=== PATIENT | female | born 1985 | race Two or more races ===

== ENCOUNTER 2016-11-09 11:00 | Emergency (ER) | payer MEDICAID ==
[~2016-11-09] VITALS: Ht 160 cm; Wt 88.9 kg
--- NOTE | 2016-11-09 11:05 | NUR ---
PATIENT PRESENTS TO ER C/O L SIDED NECK PAIN, RADIATING DOWN L ARM X 1 MONTH, WORSENING LAST NIGHT. PATIENT IS A/OX 4. BREATHING EVEN AND UNLABORED. NO SOB. VITALS STABLE. SAFETY AND COMFORT MEASURES IN PLACE. AWAITING MD ORDERS.
--- NOTE | 2016-11-09 11:55 | NUR ---
US TECH AT BEDSIDE FOR DUPLEX
--- NOTE | 2016-11-09 12:31 | NUR ---
Patient discharged to home in stable condition. Written and verbal after care instructions given. Patient verbalizes understanding of instruction.
[2016-11-09 12:32] VITALS: BP 118/76
== END 2016-11-09 12:32 | disposition home or self-care (01) ==
LOC: ER 11:04
DX: O26.893 Other specified pregnancy related conditions, third trimester (principal); M54.2 Cervicalgia; J45.909 Unspecified asthma, uncomplicated; F41.9 Anxiety disorder, unspecified; Z3A.32 32 weeks gestation of pregnancy
CPT/HCPCS: 93970-TC; A4606; Z7610

== ENCOUNTER 2017-06-02 20:21 | Emergency (ER) | payer OTHER ==
[~2017-06-02] VITALS: Ht 160 cm; Wt 83.9 kg
[2017-06-02 20:23] VITALS: BP 128/83
== END 2017-06-02 21:34 | disposition home or self-care (01) ==
LOC: ER 20:21
DX: R21 Rash and other nonspecific skin eruption (principal); J45.909 Unspecified asthma, uncomplicated; F41.9 Anxiety disorder, unspecified; D64.9 Anemia, unspecified
CPT/HCPCS: 99283; A4606; Z7610

== ENCOUNTER 2018-05-03 11:34 | Inpatient (IN) | payer OTHER ==
[~2018-05-03] VITALS: Ht 160 cm; Wt 94.3 kg
--- NOTE | 2018-05-03 11:34 | NUR ---
PT BIB FOR CHEST PAIN; PT AAOX4, PT ON MONITOR, NAD NOTED, MD AT BEDSIDE FOR EVAL
[2018-05-03] MEDS ORDERED: ACETAMINOPHEN ES 500 MG TABLET ONE (11:58)
[2018-05-03] MEDS ORDERED: ACETAMINOPHEN 650 MG/20.3 ML UDC ONE (12:00)
[2018-05-03] MEDS ORDERED: ACETAMINOPHEN ES 500 MG TABLET PO ONE (12:00)
[2018-05-03] MEDS ORDERED: IV NS 0.9% 1,000 ML BAG IV ONE (12:00)
[2018-05-03 12:05] LABS: RED BLOOD CELL COUNT(AUTO) 4.46 MIL/uL (4.0-5.2); WHITE BLOOD COUNT (AUTO) 11.1 K/uL (4.3-11.0)
[2018-05-03 12:06] LABS: BASOPHILS % (AUTO) 0.3 % (0.0-2.0); HEMATOCRIT 36 % (33-45); HEMOGLOBIN 11.6 g/dL (11.5-14.8); LYMPHOCYTES # (AUTO) 1.1 /CMM (0.8-4.8); LYMPHOCYTES % (AUTO) 10.1 % (20.0-44.0); MEAN CORPUSCULAR HGB CONC 32 g/dl (31.0-36.0); MEAN CORPUSCULAR VOLUME 80 fL (82-100); MONOCYTES % (AUTO) 9.1 % (2.0-12.0); NEUTROPHILS % (AUTO) 80.5 % (43.0-81.0); PLATELET COUNT (AUTO) 209 /CMM (150-450)
[2018-05-03 12:15] LABS: CALCIUM, SERUM 8.9 mg/dL (8.5-10.1); CARBON DIOXIDE 25 mmol/L (21-32); CHLORIDE 101 mmol/L (98-107); CREATININE 0.8 mg/dL (0.6-1.3); GLUCOSE 104 mg/dL (74-106); POTASSIUM 3.3 mmol/L (3.5-5.1); SODIUM SERUM 137 mmol/L (136-145); UREA NITROGEN, BLOOD 8 mg/dL (7-18)
[2018-05-03 12:20] LABS: ALANINE AMINOTRANSFERASE 18 U/L (12-78); ALBUMIN 3.4 g/dL (3.4-5.0); ALKALINE PHOSPHATASE 69 U/L (46-116); ASPARTATE AMINOTRANSFERASE 11 U/L (15-37); BILIRUBIN,DIRECT 0.2 mg/dL (0.0-0.2); BILIRUBIN,TOTAL 0.7 mg/dL (0.2-1.0); TOTAL PROTEIN, SERUM 7.9 g/dL (6.4-8.2)
[2018-05-03] MEDS ORDERED: AZITHROMYCIN 500 MG in IV D5W 250 ML IV ONE (13:00)
[2018-05-03] MEDS ORDERED: CEFTRIAXONE 1GM BAG (ER ONLY) 50 ML IV ONE ×2 (13:00→13:08)
[2018-05-03 13:28] LABS: BILIRUBIN,URINE 1+ (NEGATIVE); BLOOD, URINE 1+ Ery/uL (NEGATIVE); COLOR,URINE YELLOW (YELLOW); KETONES,URINE 2+ (NEGATIVE); LEUKOCYTE ESTERASE ,URINE NEGATIVE (NEGATIVE); NITRITE, URINE NEGATIVE (NEGATIVE); PROTEIN,URINE 1+ mg/dl (NEGATIVE); UGLUCOSE NEGATIVE (NEGATIVE)
--- NOTE | 2018-05-03 13:28 | NUR ---
SPOKE TO [facility] DISTANCE LEARNING UNIT LEADER: VERBAL AUTH FOR PATIENT TO STAY INPATIENT GIVEN; PT WILL BE ADMITTED TO DR. COHEN
[2018-05-03 13:42] LABS: APPEARANCE,URINE SLIGHTLY CLOUDY (CLEAR)
--- NOTE | 2018-05-03 13:48 | NUR ---
DR. NOEL PITTMAN , WAITING FOR CALL BACK.
[2018-05-03] MEDS ORDERED: PANTOPRAZOLE 40 MG TABLET.DR PO ONE ×2 (14:00→17:00)
--- NOTE | 2018-05-03 14:00 | NUR ---
PT REFUSED AZITHROMYCIN IV ATB, DR. LAZARO IS AWARE.
[2018-05-03 14:29] LABS: WBC,URINE 0-2 /HPF (0-3)
[2018-05-03 14:30] LABS: BACTERIA,URINE 3+ /HPF (None Seen)
[2018-05-03] MEDS ORDERED: POTASSIUM CHLORIDE 20 MEQ TAB.PRT.SR PO ONE (14:30)
--- NOTE | 2018-05-03 14:35 | NUR ---
[facility] BED [phone] RN IS PHANI
--- NOTE | 2018-05-03 15:48 | NUR ---
PT TRANSPORTED TO 3RD FLOOR VIA ACLS PROTOCOL; REPORT GIVEN TO SHERIN SCHMID FOR SUNG
[2018-05-03 16:00] VITALS: BP 116/76
--- NOTE | 2018-05-03 16:33 | NUR ---
[employer] TR[employer]IVER NOTES PROTONIX TAB NON ADMINISTERED, UNABLE TO REMOVE FROM OMNICELL, WILL REORDER MED.
--- NOTE | 2018-05-03 16:35 | NUR ---
RN MS NOTES Received patient on room air, no sob or ventilatory distress noted. Patient has tachycardia at the moment, patient states that she has back pain that is a 2 on a scale of 0-10. Patient lying down comfortably in bed, call light within reach, safety measures in place.
[2018-05-03] MEDS ORDERED: PANTOPRAZOLE 40 MG/PACK PACK GT ONE (17:00)
--- NOTE | 2018-05-03 18:02 | NUR ---
RN MS YANEZ NOTES Patient denies any chest pain, patients heart rate is consistently around 130-140. Patient also stated that she was supposed to take ABX for her teeth that was infected, and that her ear is hurting. I asked the patient if she mentioned this in the ER, she said no she did not mention it. Patient is currently resting and lying down in bed with no distress, patients call light within reach and all safety measures are on.
[2018-05-03] MEDS ORDERED: ALPRAZOLAM 0.25 MG TABLET PO PRN (18:30)
--- NOTE | 2018-05-03 18:30 | NUR ---
NURSE EMERGENCY NOTES PT IN BED, NO COMPLAINT AT THIS TIME, RECEIVED CALL FROM DR. COHEN, PT'S HR ON 120'S-130'S, AWARE, NEW ORDERS GIVEN, NOTED AND CARRIED OUT, PT MADE AWARE, PT REFUSING CT SCAN.
[2018-05-03] MEDS ORDERED: Potassium Chloride 20 MEQ in IV NS 0.9% 1,000 ML IV PRN (19:00)
[2018-05-03] MEDS ORDERED: METOPROLOL TARTRATE 25 MG TABLET PO SCH (19:00)
--- NOTE | 2018-05-03 19:00 | NUR ---
RN MS OPENING NOTES RECEIVED PATIENT AWAKE ALERT AND ORIENTED X 4, RESPIRATIONS EVEN AND UNLABORED WITH EQUAL RISE AND FALL OF CHEST, DENIES ANY PAIN OR DISCOMFORT AT THIS TIME, ON CARDIAC TELE MONITOR HR 130-140 ST WITH PVC'S, DENIES ANY CHEST PAIN OR DISCOMFORT, IV SITE TO RIGHT FA #20 G INTACT AND PATENT, NO REDNESS, NO INFILTRATION PRESENT. SAFETY PRECAUTIONS IN PLACE, LOW BED AND LOCKED, ORIENTED TO STAFF AND CALL LIGHT AND KEPT WITHIN REACH, ALL NEEDS ATTENDED AT THIS TIME WILL CONTINUE TO MONITOR AND ATTEND TO NEEDS.
[2018-05-03] MEDS ORDERED: ACETAMINOPHEN 650 MG/20.3 ML UDC PO PRN (19:30)
[2018-05-03 20:00] VITALS: BP 105/71
[2018-05-03] MEDS ORDERED: ZOLPIDEM TARTRATE 5 MG TABLET PO PRN (21:00)
--- NOTE | 2018-05-03 21:00 | NUR ---
RN MS NOTES PATIENT SEEN AND EXAMINED BY , PATIENT AT THIS TIME DOES NOT WANT LOPRESSOR OR POTASSIUM IVF TO BE GIVEN ORDERED. SEEMS HESITANT DESPITE PROVIDING RISK AND BENEFIT EXPLANATION, MD ALSO PROVIDED MED LOPRESSOR AND IVF POTASSIUM EXPLANATION PATIENT DOES NOT WANT AT THIS TIME, PATIENT IS ALSO REQUESTING TO BE DISCHARGED TONIGHT , HOWEVER EXPLAINED RISKS AND BENEFIT AND ADVISE TO STAY TO MONITOR HEART RATE AND TO TREAT INFECTIONS, PATIENT VERBALIZED HAD GUM INFECTION , MD ASSESS WITH RECOMMENDATION FOR ATB, HOWEVER PATIENT STATES " DONT WANT ANY MORE ANTIBIOTICS" PATIENT EXPRESSED MD THAT SHE WANTS TO GO , PATIENT MADE AWARE OF THE RIGHT TO AMA.
--- NOTE | 2018-05-03 21:30 | NUR ---
RN MS NOTES PATIENT DECIDED TO LEAVE AGAINST MEDICAL ADVISE, SHE SIGNED AMA FORM. BELONGINGS WITH PATIENT, IV SITE REMOVED AND ID BAND REMOVED. AT BEDSIDE. MADE AWARE.
--- NOTE | 2018-05-03 21:45 | NUR ---
RN MS NOTES INCIDENT REPORT DONE
--- NOTE | 2018-05-03 21:45 | NUR ---
RN MS CLOSING NOTES PATIENT LEFT AGAINST MEDICAL ADVISE, MADE AWARE ANY EMERGENCY CAN CALL 911 OR GO TO ER. LEFT WITH AND BELONGINGS. LEFT IN STABLE CONDITION.
[2018-05-03] MEDS ORDERED: CLINDAMYCIN 600 MG in IV D5W 50 ML IV SCH (22:00)
== END 2018-05-03 21:45 | disposition left against medical advice (07) | DRG 720 ==
LOC: ER 11:38 → TELE 14:55
PROVIDERS: ADMIT Internal Medicine; ATTEND Internal Medicine
DX: A41.9 Sepsis, unspecified organism (principal); D64.9 Anemia, unspecified; E87.6 Hypokalemia; J45.909 Unspecified asthma, uncomplicated; K04.7 Periapical abscess without sinus; F41.9 Anxiety disorder, unspecified; Z88.9 Allergy status to unspecified drugs, medicaments and biological substances; R00.0 Tachycardia, unspecified
CPT/HCPCS: 36415; 71045-TC; 80048-TC; 80076-TC; 81000-TC; 83605-TC; 84443-TC; 84484-TC; 84703-TC; 85025-TC; 85730-TC; 87040-TC; 87086-TC; 87400; G0378; J0456; J0696; J3480; J3490; J7030; J7060